=== PATIENT | male | born 1945 | race Caucasian/White ===

== ENCOUNTER 2018-08-15 07:32 | Emergency (ER) | payer OTHER, BC ==
[2018-08-15 07:40] VITALS: PULSE 62; TEMP 98.5; BMI 29.0
[2018-08-15] MEDS ORDERED: ACETAMINOPHEN 1000 MG/100 ML VIAL (NON FORMULARY) IVPB ONE (07:56)
[2018-08-15] MEDS ORDERED: SODIUM CHLORIDE 0.9% 1000 ML INFUS.BAG IV ONE (07:56)
--- NOTE | 2018-08-15 07:57 | PDOC ---
History of Present Illness - General History Source: Patient Exam Limitations: No Limitations - History of Present Illness Initial Comments: 08/15/18 07:53 73M with a PMH of diverticulitis, chronic constipation, and BPH who presents to the ED with complaints of abdominal pain. The patient states that he's had 2 days of sharp, LLQ pain. The pain was initially intermittent and radiated to the RLQ. Since this morning, it has been constant without exacerbating or alleviating factors. He denies fever, chills, nausea, vomiting, CP, SOB, hematochezia, melena, testicular pain, dysuria, and penile discharge. <Priyank Schumacher - Last Filed: 08/15/18 12:26> <Stephan Santacruz - Last Filed: 08/15/18 12:33> - General Chief Complaint: Pain, Acute Stated Complaint: PAIN Time Seen by Provider: 08/15/18 07:45 Past History - Suicide/Smoking/Psychosocial Hx Smoking History: Never smoked Have you smoked in the past 12 months: No Information on smoking cessation initiated: No Hx Alcohol Use: No Drug/Substance Use Hx: No <Priyank Schumacher - Last Filed: 08/15/18 12:26> <Stephan Santacruz - Last Filed: 08/15/18 12:33> - Past Medical History Allergies/Adverse Reactions: Allergies Allergy/AdvReac Type Severity Reaction Status Date / Time No Known Allergies Allergy Verified 08/15/18 07:35 Home Medications: Ambulatory Orders Linaclotide [Linzess] 72 mcg PO DAILY 08/15/18 Metronidazole 500 mg PO TID #21 tablet 08/15/18 Sulfamethoxazole/Trimethoprim [Bactrim Ds -] 1 tab PO BID #14 tablet 08/15/18 Tamsulosin HCl 0.4 mg PO DAILY 08/15/18 Review of Systems - Review of Systems Able to Perform ROS?: Yes Comments:: 08/15/18 08:06 GENERAL/CONSTITUTIONAL: No fever or chills. No weakness. HEAD, EYES, EARS, NOSE AND THROAT: No change in vision. No ear pain or discharge. No sore throat. CARDIOVASCULAR: No chest pain, palpitations, or lightheadedness. RESPIRATORY: No cough, wheezing, shortness of breath, or hemoptysis. GASTROINTESTINAL: + for abdominal pain. No nausea, vomiting, diarrhea, or constipation. GENITOURINARY: No dysuria, frequency, hematuria, or change in urination. MUSCULOSKELETAL: No joint or muscle swelling or pain. No neck or back pain. SKIN: No rash or lesions. NEUROLOGIC: No headache, numbness, tingling, focal weakness, loss of consciousness, or change in strength/sensation. Is the patient limited Polish proficient: No <Priyank Schumacher - Last Filed: 08/15/18 12:26> *Physical Exam - Vital Signs Last Vital Signs Temp Pulse Resp BP Pulse Ox 98.5 F 62 18 179/85 H 97 08/15/18 07:37 08/15/18 07:37 08/15/18 07:37 08/15/18 07:37 08/15/18 07:37 - Physical Exam Comments: 08/15/18 08:07 GENERAL: Well developed, well nourished. Awake and alert. No acute distress. HEENT: Normocephalic, atraumatic. Hearing grossly normal. Moist mucous membranes. PERRLA, EOMI. No conjunctival pallor. Sclera are non-icteric. NECK: Supple. Full ROM. No JVD. CARDIOVASCULAR: Regular rate and rhythm. No murmurs, rubs, or gallops. PULMONARY: No evidence of respiratory distress. Lungs clear to auscultation bilaterally. No wheezing, rales or rhonchi. ABDOMINAL: Soft. TTP in LLQ. Non-distended. No rebound or guarding. GENITOURINARY: No CVA tenderness bilaterally. MUSCULOSKELETAL: Normal range of motion at all joints. No bony deformities or tenderness. EXTREMITIES: No cyanosis. No clubbing. No edema. No calf tenderness or swelling. SKIN: Warm and dry. Normal capillary refill. No rashes. No jaundice. NEUROLOGICAL: Alert, awake, appropriate. Cranial nerves 2-12 grossly intact. Normal speech. Gait is normal without ataxia. PSYCHIATRIC: Cooperative. Good eye contact. Appropriate mood and affect. <Priyank Schumacher - Last Filed: 08/15/18 12:26> - Vital Signs Last Vital Signs Temp Pulse Resp BP Pulse Ox 98.5 F 62 18 179/85 H 97 08/15/18 07:37 08/15/18 07:37 08/15/18 07:37 08/15/18 07:37 08/15/18 07:37 <Stephan Santacruz - Last Filed: 08/15/18 12:33> ED Treatment Course - LABORATORY CBC & Chemistry Diagram: 08/15/18 08:11 08/15/18 08:11 - RADIOLOGY Radiology Studies Ordered: Category Date Time Status CHEST X-RAY PORTABLE* [RAD] Stat Radiology 08/15/18 07:45 Ordered <Priyank Schumacher - Last Filed: 08/15/18 12:26> - LABORATORY CBC & Chemistry Diagram: 08/15/18 08:11 08/15/18 08:11 - ADDITIONAL ORDERS Additional order review: Laboratory Results 08/15/18 08/15/18 08/15/18 08:18 08:11 08:11 PT with INR INR Sodium 136 Potassium 3.8 Chloride 104 Carbon Dioxide 26 Anion Gap 6 L BUN 18.8 H Creatinine 1.1 Est GFR (CKD-EPI)AfAm 77.32 Est GFR (CKD-EPI)NonAf 66.71 Random Glucose 99 Lactic Acid 1.4 Calcium 9.2 Total Bilirubin 0.7 AST 21 ALT 29 Alkaline Phosphatase 91 Total Protein 7.0 Albumin 3.6 Lipase 132 Urine Color Yellow Urine Appearance Clear Urine pH 7.0 Ur Specific [place] 1.010 Urine Protein Negative Urine Glucose (UA) Negative Urine Ketones Negative Urine Blood Trace Urine Nitrite Negative Urine Bilirubin Negative Urine Urobilinogen 0.2 Ur Leukocyte Esterase Negative Urine WBC (Auto) 0 Urine RBC (Auto) 2 Urine Casts (Auto) 0 U Epithel Cells (Auto) 0.1 Urine Bacteria (Auto) 0.3 08/15/18 08:11 PT with INR 11.70 INR 0.99 Sodium Potassium Chloride Carbon Dioxide Anion Gap BUN Creatinine Est GFR (CKD-EPI)AfAm Est GFR (CKD-EPI)NonAf Random Glucose Lactic Acid Calcium Total Bilirubin AST ALT Alkaline Phosphatase Total Protein Albumin Lipase Urine Color Urine Appearance Urine pH Ur Specific [place] Urine Protein Urine Glucose (UA) Urine Ketones Urine Blood Urine Nitrite Urine Bilirubin Urine Urobilinogen Ur Leukocyte Esterase Urine WBC (Auto) Urine RBC (Auto) Urine Casts (Auto) U Epithel Cells (Auto) Urine Bacteria (Auto) 08/15/18 08:11 RBC 4.78 MCV 89.6 MCHC 34.2 RDW 13.4 MPV 8.7 Neutrophils % 72.0 Lymphocytes % 17.0 Monocytes % 10.5 H Eosinophils % 0.4 Basophils % 0.1 - Medications Given in the ED: ED Medications Discontinued Medications Generic Name Dose Route Start Last Admin Trade Name Hilario PRN Reason Stop Dose Admin Acetaminophen 1,000 mg 08/15/18 07:56 08/15/18 08:20 Ofirmev Injection - IVPB 08/15/18 07:57 1,000 mg ONCE ONE Administration Sodium Chloride 1,000 ml 08/15/18 07:56 08/15/18 08:20 Normal Saline - IV 08/15/18 07:57 1,000 ml ONCE ONE Administration <Stephan Santacruz - Last Filed: 08/15/18 12:33> Medical Decision Making - Medical Decision Making 08/15/18 08:07 73M with a PMH of diverticulitis, chronic constipation, and BPH who presents to the ER for LLQ pain concerning for diverticulitis/losis. Giving fluids and IV acetaminophen. Pending labs and imaging. Pt is otherwise well appearing. 08/15/18 09:11 CBC shows WBC of 11.5. CMP unremarkable. EKG unremarkable. Pending CT. 08/15/18 12:26 CT shows diverticulitis. Will give bactrim/flagyl in ED and send as outpt script. Pt aware. Will d/c with PCP f/u. <Priyank Schumacher - Last Filed: 08/15/18 12:26> *DC/Admit/Observation/Transfer - Discharge Dispostion Decision to Admit order: No <Priyank Schumacher - Last Filed: 08/15/18 12:26> <Stephan Santacruz - Last Filed: 08/15/18 12:33> Diagnosis at time of Disposition: Diverticulitis - Discharge Dispostion Disposition: HOME Condition at time of disposition: Stable - Prescriptions Prescriptions: Metronidazole 500 mg PO TID #21 tablet Sulfamethoxazole/Trimethoprim [Bactrim Ds -] 1 tab PO BID #14 tablet - Referrals Referrals: Nikko Goff MD [Primary Care Provider] - - Patient Instructions Printed Discharge Instructions: DI for Diverticulitis Additional Instructions: Your ER visit is not complete until your follow up with your primary care physician. Please follow up with your primary care physician in 1-2 days. Please return to the ER if you have any signs or symptoms of chest pain, shortness of breath, uncontrollable fever, chills, nausea, vomiting, numbness, tingling, or weakness in any part of your body, changes in vision, or slurred speech. Please take your medications as prescribed. Please be aware that one antibiotic is 3 times a day (metronidazole/flagyl) and the other is 2 (TMPX/bactrim). Please return to the ER if symptoms persist, worsen, or new symptoms arise. You also need to have your blood pressure re-checked by your primary doctor, as it was slightly elevated today. Uncontrolled blood pressure can eventually lead to kidney disease, heart disease, other serious illness, disability, or even .
[2018-08-15] MEDS ORDERED: ACETAMINOPHEN INJECTION 100 ML IVPB ONE (08:15)
[2018-08-15 08:43] LABS: EPI CELLS 0.1 /HPF (0-5/HPF); HYALINE CASTS 0 /lpf (0-8); URINE APPEARANCE CLEAR; URINE BACTERIA 0.3 /hpf (NEGATIVE); URINE BILIRUBIN NEGATIVE (NEGATIVE); URINE COLOR YELLOW; URINE GLUCOSE (UA) NEGATIVE (NEGATIVE); URINE KETONE NEGATIVE (NEGATIVE); URINE LEUK ESTERASE NEGATIVE (NEGATIVE); URINE NITRITE NEGATIVE (NEGATIVE); URINE PROTEIN NEGATIVE (NEGATIVE); URINE RBC 2 /hpf (0-4); URINE UROBILINOGEN 0.2 mg/dL (0.2-1.0); URINE WBC 0 /hpf (0-5)
[2018-08-15 08:47] LABS: BASO % 0.1 % (0-2.0); EOS % 0.4 % (0-4.5); HEMATOCRIT 42.8 % (35.4-49); HEMOGLOBIN 14.6 GM/dL (11.7-16.9); MCH 30.7 pg (25.7-33.7); MCHC 34.2 g/dl (32.0-35.9); MEAN CELL VOLUME 89.6 fl (80-96); MEAN PLT VOLUME 8.7 fl (7.5-11.1); MONO % 10.5 % (3.8-10.2); PLATELET COUNT 176 K/MM3 (134-434); RBC 4.78 M/mm3 (4.00-5.60); RDW 13.4 % (11.9-15.9); WHITE BLOOD COUNT 11.5 K/mm3 (4.0-10.0)
[2018-08-15 09:01] LABS: ALBUMIN 3.6 g/dl (3.4-5.0); BILIRUBIN,TOTAL 0.7 mg/dL (0.2-1); BLOOD UREA NITROGEN 18.8 mg/dL (7-18); CALCIUM 9.2 mg/dL (8.5-10.1); CREATININE 1.1 mg/dL (0.55-1.3); POTASSIUM 3.8 mmol/L (3.5-5.1)
[2018-08-15 09:07] LABS: INR 0.99 (0.83-1.09); PROTHROMBIN TIME (PATIENT) 11.7 SEC (9.7-13.0)
--- NOTE | 2018-08-15 09:25 | PDOC ---
Documentation entered by Kelly Martin SCRIBE, acting as scribe for Stephan Santacruz MD. Stephan Santacruz MD: This documentation has been prepared by the Veronica sampson Brenda, SCRIBE, under my direction and personally reviewed by me in its entirety. I confirm that the documentation accurately reflects all work, treatment, procedures, and medical decision making performed by me. Attending Attestation - Resident Resident Name: VargastanPriyank - ED Attending Attestation I have performed the following: I have examined & evaluated the patient, The case was reviewed & discussed with the resident, I agree w/resident's findings & plan, Exceptions are as noted - HPI HPI: 08/15/18 09:27 The patient is a 73 year old male, with a significant PMH of BPH, diverticulitis and chronic constipation, who presents to the emergency department with 2 days of sharp lower abdominal pain. Pain was initially intermittent but has become constant over the past day. The patient denies aggravating or alleviating factors. Denies chest pain, shortness of breath, headache and dizziness. Denies fever, chills, nausea, vomiting, diarrhea, constipation, hematochezia and melena. Denies dysuria, testicular pain, penile discharge and hematuria. Allergies: NKA Past surgical history: Not reported Social history: Non smoker PCP: Dr. Goff - Physicial Exam PE: 08/15/18 09:35 "GENERAL: Awake, alert, and fully oriented, in no acute distress. HEAD: No signs of trauma EYES: PERRLA, EOMI, sclera anicteric, conjunctiva clear ENT: Auricles normal inspection, hearing grossly normal, nares patent, oropharynx clear without exudates. Moist mucosa NECK: Nontender, no stepoffs, Normal ROM, supple, no lymphadenopathy, JVD, or masses LUNGS: Breath sounds equal, clear to auscultation bilaterally. No wheezes, and no crackles HEART: Regular rate and rhythm, normal S1 and S2, no murmurs, rubs or gallops ABDOMEN: + diffuse lower abdominal TTP, normoactive bowel sounds. No guarding, no rebound. No masses EXTREMITIES: Normal range of motion, no edema. No clubbing or cyanosis. No cords, erythema, or tenderness NEUROLOGICAL: Cranial nerves II through XII intact. 5/5 strength and sensation in all extremities, Normal speech, normal gait, normal cerebellar function SKIN: Warm, Dry, normal turgor, no rashes or lesions noted. - Medical Decision Making 08/15/18 09:35 73 M with lower abdominal pain. Suspect diverticulitis given prior history. - Labs - CTAP 08/15/18 12:[address] shows acute diverticulitis Will tx with bactrim/flagyl Pt is well appearing, with normal vitals. Clinically stable for DC at this time. I discussed the physical exam findings, ancillary test results and final diagnoses with the patient. I answered all of the patient's questions. The patient was satisfied with the care received and felt comfortable with the discharge plan and treatment plan. The patient agrees to follow up with the primary care physician within 24-72 hours.
[2018-08-15] MEDS ORDERED: SULFAMETHOXAZOLE/TRIMETHOPRIM 800MG/160MG D.S. TABLET PO ONE (12:20)
[2018-08-15] MEDS ORDERED: metroNIDAZOLE 250 MG TABLET PO ONE (12:21)
[2018-08-15] MEDS ORDERED: metroNIDAZOLE 250 MG TABLET ONE (12:30)
[2018-08-15] MEDS ORDERED: SULFAMETHOXAZOLE/TRIMETHOPRIM 800MG/160MG D.S. TABLET ONE (12:31)
[2018-08-15 12:41] VITALS: BP 162/82
--- NOTE | 2018-08-15 12:52 | EKG ---
Test Reason : Blood Pressure : / mmHG Vent. Rate : 059 BPM Atrial Rate : 059 BPM P-R Int : 134 ms QRS Dur : 084 ms QT Int : 402 ms P-R-T Axes : 038 038 023 degrees QTc Int : 397 ms SINUS BRADYCARDIA NONSPECIFIC T WAVE ABNORMALITY NO PREVIOUS ECGS AVAILABLE Confirmed by MIKE BOYD MD ([id number]) on 08/15/2018 12:52:30 PM Referred By: Confirmed By:MIKE BOYD MD
== END 2018-08-15 12:47 | disposition home or self-care (01) ==
LOC: JER 07:32
DX: K57.92 Diverticulitis of intestine, part unspecified, without perforation or abscess without bleeding (principal); K59.09 Other constipation; N40.0 Benign prostatic hyperplasia without lower urinary tract symptoms
CPT/HCPCS: 36415; 71045-TC-FY; 74177-TC; 80053; 81003; 83605; 83690; 85025; 85610; 93005; 93010; 99283-25; J0131; J7030